=== PATIENT | female | born 1955 | race Caucasian/White ===

== ENCOUNTER 2023-06-29 21:59 | Outpatient (REF) | payer BC, SELFPAY ==
[2023-06-29 21:40] LABS: Abs Immature Grans 0.02 10^3/uL (0.0-0.06); Absolute Basophil Count 0.02 10^3/uL (0.0-0.2); Absolute Eosinophil Count 0.08 10^3/uL (0.0-0.7); Absolute Lymphocyte Count 1.44 10^3/uL (1.2-3.4); Absolute Monocyte Count 0.68 10^3/uL (0.1-0.8); Absolute Neutrophil Count 6.86 10^3/uL (1.2-6.7); Basophils % 0.2 %; ESR 36 mm/hr (0-30); Eosinophils % 0.9 %; HCT 41.9 % (36.0-46.0); HGB 13.9 g/dL (11.2-15.7); Immature Grans % 0.2 %; Lymphocytes % 15.8 %; MCH 30.5 pg (27.0-33.0); MCHC 33.2 % (32.0-36.0); MCV 92 fL (80-95); MPV 9.5 fL (8.0-11.0); Monocytes % 7.5 %; Neutrophils % 75.4 %; Platelet Count 214 10^3/uL (130-400); RBC 4.56 10^6/uL (3.93-5.22); RDW 12.7 % (11.7-14.6); RDW-SD 43.1 fL
[2023-06-30 18:34] LABS: CRP, High Sensitivity >15.00 mg/L (See Note)
== END 2023-06-29 22:00 | disposition home or self-care (01) ==
LOC: LBN 21:59
PROVIDERS: PCP Nurse Practitioner Family; Visit Provider Physician Assistant
DX: L03.115 Cellulitis of right lower limb (principal)
CPT/HCPCS: 85652; 86141; 85025

== ENCOUNTER 2024-01-10 21:06 | Outpatient (REF) | payer BC, SELFPAY ==
[2024-01-10 21:54] LABS: ALT 34 U/L (14-59); AST 16 U/L (15-37); Albumin 3.7 g/dL (3.4-5.0); Alkaline Phosphatase 65 U/L (46-116); Anion Gap 8.4 mmol/L (3-11); BUN 29 mg/dL (7-18); Bilirubin, Total 0.32 mg/dL (0.2-1.0); CO2 27.6 mmol/L (21.0-32.0); CREATININE 1.1 mg/dL (0.55-1.02); Chloride 109 mmol/L (98-107); Estimated GFR 54.73 (mL/min/1.73m2); Glucose 134 mg/dL (74-106); Potassium 4.5 mmol/L (3.5-5.1); Sodium 145 mmol/L (136-145); Total Protein 7.4 g/dL (6.4-8.2)
== END 2024-01-10 21:07 | disposition home or self-care (01) ==
LOC: LBN 21:06
PROVIDERS: PCP Nurse Practitioner Family; Visit Provider Nurse Practitioner
DX: Z79.899 Other long term (current) drug therapy (principal); M06.9 Rheumatoid arthritis, unspecified
CPT/HCPCS: 80053

== ENCOUNTER 2024-06-21 23:14 | Outpatient (REF) | payer BC, SELFPAY ==
[2024-06-21 23:23] LABS: C-Reactive Protein 1.47 mg/dL (<or=0.5)
== END 2024-06-21 23:15 | disposition home or self-care (01) ==
LOC: LBN 23:14
PROVIDERS: Visit Provider Physician Assistant Medical
DX: Z79.899 Other long term (current) drug therapy (principal)
CPT/HCPCS: 86140

== ENCOUNTER 2024-07-25 21:36 | Outpatient (REF) | payer BC, SELFPAY ==
[2024-07-25 21:40] LABS: Abs Immature Grans 0.01 10^3/uL (0.0-0.06); Absolute Basophil Count 0.04 10^3/uL (0.0-0.2); Absolute Eosinophil Count 0.45 10^3/uL (0.0-0.7); Absolute Lymphocyte Count 2.02 10^3/uL (1.2-3.4); Absolute Monocyte Count 0.59 10^3/uL (0.1-0.8); Absolute Neutrophil Count 3.73 10^3/uL (1.2-6.7); Basophils % 0.6 %; Eosinophils % 6.6 %; HCT 40.7 % (36.0-46.0); HGB 13.4 g/dL (11.2-15.7); Immature Grans % 0.1 %; Lymphocytes % 29.5 %; MCH 30.2 pg (27.0-33.0); MCHC 32.9 % (32.0-36.0); MCV 92 fL (80-95); MPV 9.3 fL (8.0-11.0); Monocytes % 8.6 %; Neutrophils % 54.6 %; Platelet Count 252 10^3/uL (130-400); RBC 4.43 10^6/uL (3.93-5.22); RDW 12.9 % (11.7-14.6); RDW-SD 43.7 fL; WBC 6.84 10^3/uL (4.4-10.8)
[2024-07-25 21:41] LABS: ESR 16 mm/hr (0-30)
[2024-07-25 21:50] LABS: ALT 45 U/L (14-59); AST 20 U/L (15-37); Albumin 3.8 g/dL (3.4-5.0); Alkaline Phosphatase 69 U/L (46-116); Anion Gap 5.3 mmol/L (3-11); BUN 20 mg/dL (7-18); Bilirubin, Total 0.3 mg/dL (0.2-1.0); CO2 29.7 mmol/L (21.0-32.0); CREATININE 1.2 mg/dL (0.55-1.02); Calcium 9.3 mg/dL (8.5-10.1); Chloride 105 mmol/L (98-107); Estimated GFR 49.31 (mL/min/1.73m2); Glucose 115 mg/dL (74-106); Potassium 4.3 mmol/L (3.5-5.1); Sodium 140 mmol/L (136-145); Total Protein 7.5 g/dL (6.4-8.2)
== END 2024-07-25 21:37 | disposition home or self-care (01) ==
LOC: LBN 21:36
PROVIDERS: Visit Provider Nurse Practitioner Family
DX: M06.9 Rheumatoid arthritis, unspecified (principal)
CPT/HCPCS: 80053; 85652; 85025

== ENCOUNTER 2024-08-17 21:24 | Outpatient (REF) | payer BC, SELFPAY | END 2024-08-17 21:25 | disposition home or self-care (01) | LOC: LBN 21:24 | PROVIDERS: Visit Provider Physician Assistant Medical | DX: L03.115 Cellulitis of right lower limb (principal) | CPT/HCPCS: 87077; 87070; 87186; 87205 ==

== ENCOUNTER 2024-12-19 18:26 | Outpatient (REF) | payer BC, SELFPAY ==
[2024-12-19 21:15] LABS: Abs Immature Grans 0.01 10^3/uL (0.0-0.06); HCT 42.5 % (36.0-46.0); HGB 14.1 g/dL (11.2-15.7); Immature Grans % 0.1 %; MCH 29.5 pg (27.0-33.0); MCHC 33.2 % (32.0-36.0); MCV 89 fL (80-95); MPV 10.0 fL (8.0-11.0); Platelet Count 234 10^3/uL (130-400); RBC 4.78 10^6/uL (3.93-5.22); RDW 12.7 % (11.7-14.6); RDW-SD 41.5 fL; WBC 7.83 10^3/uL (4.4-10.8)
[2024-12-19 21:16] LABS: ESR 22 mm/hr (0-30)
[2024-12-19 21:28] LABS: ALT 38 U/L (14-59); AST 22 U/L (15-37); Albumin 4.0 g/dL (3.4-5.0); Alkaline Phosphatase 73 U/L (46-116); Anion Gap 13.4 mmol/L (3-11); BUN 25 mg/dL (7-18); Bilirubin, Total 0.5 mg/dL (0.2-1.0); C-Reactive Protein < 0.50 mg/dL (<or=0.5); CO2 23.6 mmol/L (21.0-32.0); Calcium 9.2 mg/dL (8.5-10.1); Chloride 104 mmol/L (98-107); Estimated GFR 44.51 (mL/min/1.73m2); Glucose 110 mg/dL (74-106); Potassium 4.1 mmol/L (3.5-5.1); Sodium 141 mmol/L (136-145); Total Protein 8.0 g/dL (6.4-8.2)
== END 2024-12-19 18:27 | disposition home or self-care (01) ==
LOC: LBN 18:26
PROVIDERS: Visit Provider Nurse Practitioner
DX: M06.9 Rheumatoid arthritis, unspecified (principal)
CPT/HCPCS: 80053; 85652; 85025; 86140